=== PATIENT | male | born 1985 | race Caucasian/White ===

== ENCOUNTER 2021-01-25 11:58 | Emergency (ER) | payer BC ==
[~2021-01-25] VITALS: Ht 188 cm; Wt 75.7 kg
== END 2021-01-25 17:32 | disposition home or self-care (01) ==
LOC: ER 11:58
DX: I80.8 Phlebitis and thrombophlebitis of other sites (principal); L03.113 Cellulitis of right upper limb; T82.7XXA Infection and inflammatory reaction due to other cardiac and vascular devices, implants and grafts, initial encounter; Y80.1 Therapeutic (nonsurgical) and rehabilitative physical medicine devices associated with adverse incidents

== ENCOUNTER 2021-07-23 13:14 | Emergency (ER) | payer BC ==
[~2021-07-23] VITALS: Ht 188 cm; Wt 74.8 kg
[2021-07-23] MEDS ORDERED: DUI500 PO (16:29)
[2021-07-23] MEDS ORDERED: CELEBREX100 MG PO (16:29)
[2021-07-23] MEDS ORDERED: ECOTRIN325 M1 PO (16:29)
== END 2021-07-23 16:45 ==
LOC: ER 13:14
DX: I80.8 Phlebitis and thrombophlebitis of other sites (principal)

== ENCOUNTER 2021-07-23 17:08 | Outpatient (CLI) | payer BC ==
[~2021-07-23 17:08] MED LIST: CELEBREX100 MG PO; DUI500 PO; ECOTRIN325 M1 PO
== END 2021-07-23 20:20 | disposition home or self-care (01) ==
LOC: LAB 17:08
DX: Z11.3 Encounter for screening for infections with a predominantly sexual mode of transmission (principal)

== ENCOUNTER 2022-02-12 10:39 | Emergency (ER) | payer OTHER ==
[~2022-02-12] VITALS: Ht 188 cm; Wt 74.8 kg
[2022-02-12] MEDS ORDERED: ZYRTEC10 M3 (11:05)
== END 2022-02-12 14:52 | disposition home or self-care (01) ==
LOC: ER 10:39
DX: A05.8 Other specified bacterial foodborne intoxications (principal); R11.2 Nausea with vomiting, unspecified; R19.7 Diarrhea, unspecified

== ENCOUNTER 2022-02-19 08:02 | Emergency (ER) | payer OTHER ==
[~2022-02-19] VITALS: Ht 188 cm; Wt 74.8 kg
[~2022-02-19 08:02] MED LIST changes: +ZYRTEC10 M3
[2022-02-19] MEDS ORDERED: CIPRO500 MG PO (15:41)
[2022-02-19] MEDS ORDERED: INTESTINEX680 M1 PO (15:41)
[2022-02-19] MEDS ORDERED: METRONIDAZOLE500 MG PO (15:41)
[2022-02-19] MEDS ORDERED: PEPCID AC20 MG PO (15:41)
== END 2022-02-19 16:26 ==
LOC: ER 08:02
DX: A09 Infectious gastroenteritis and colitis, unspecified (principal); A08.8 Other specified intestinal infections; E86.0 Dehydration; T61.01XA Ciguatera fish poisoning, accidental (unintentional), initial encounter; R10.84 Generalized abdominal pain; Z20.822 Contact with and (suspected) exposure to COVID-19

== ENCOUNTER 2022-03-07 09:17 | Emergency (ER) | payer OTHER ==
[~2022-03-07] VITALS: Ht 188 cm; Wt 74.8 kg
[~2022-03-07 09:17] MED LIST changes: +CIPRO500 MG PO; +INTESTINEX680 M1 PO; +METRONIDAZOLE500 MG PO; +PEPCID AC20 MG PO
[2022-03-07] MEDS ORDERED: KETO10TA2 PO (16:03)
[2022-03-07] MEDS ORDERED: DUI500 PO (16:03)
== END 2022-03-07 16:11 | disposition home or self-care (01) ==
LOC: ER 09:17
DX: I80.8 Phlebitis and thrombophlebitis of other sites (principal); L03.114 Cellulitis of left upper limb
CPT/HCPCS: 73220

== ENCOUNTER 2023-05-18 10:35 | Outpatient (CLI) | payer OTHER ==
[~2023-05-18 10:35] MED LIST changes: +KETO10TA2 PO
== END 2023-05-18 10:36 | disposition home or self-care (01) ==
LOC: LAB 10:35
PROVIDERS: ATTEND Internal Medicine
DX: E55.9 Vitamin D deficiency, unspecified (principal); Z13.1 Encounter for screening for diabetes mellitus; Z13.220 Encounter for screening for lipoid disorders; Z13.29 Encounter for screening for other suspected endocrine disorder; R19.7 Diarrhea, unspecified; R73.9 Hyperglycemia, unspecified; E03.9 Hypothyroidism, unspecified; E78.9 Disorder of lipoprotein metabolism, unspecified

== ENCOUNTER 2025-01-26 09:47 | Emergency (ER) | payer OTHER ==
[~2025-01-26] VITALS: Ht 188 cm; Wt 86.2 kg
[2025-01-26 11:31] LABS: BASO % 0.7 % (0.1-1.2); EOS # 0.08 (0.04-0.54); EOS % 0.9 % (0.7-7.0); HEMATOCRIT 35.4 % (40.1-51.0); HEMOGLOBIN 12.4 g/dL (13.7-17.5); LYMPH # 3.02 (1.18-3.74); LYMPH % 35.4 % (19.3-53.1); MEAN CORPUSCULAR HEMOGLOBIN 31.2 pg (25.6-32.2); MONO % 8.2 % (4.7-12.5); NEUT # 4.65 (1.56-6.13); NEUT % 54.6 % (34.0-71.1); PLATELET COUNT 186 K/uL (163-369); RED BLOOD COUNT 3.97 M/uL (4.63-6.08); RED CELL DISTRIBUTION WIDTH 12.8 % (11.6-14.4)
== END 2025-01-26 12:34 | disposition home or self-care (01) ==
LOC: ER 10:28
PROVIDERS: General Practice
DX: K61.1 Rectal abscess (principal)